=== PATIENT | female | born 2000 | race Caucasian/White ===

== ENCOUNTER 2019-10-01 00:38 | Emergency (ER) | payer SELFPAY ==
[~2019-10-01] VITALS: Ht 156.2 cm; Wt 61.4 kg
[2019-10-01 00:50] VITALS: Ht 156.2 cm; Wt 61.4 kg
[2019-10-01 01:14] LABS: BASOPHILS 0.2 % (0-2); EOSINOPHILS 1.4 % (0-7); HEMATOCRIT 40.3 % (36.0-48.0); HEMOGLOBIN 12.9 g/dL (12-16); IMMATURE GRANULOCYTES 0.2 % (0-5); LYMPHOCYTES 21.2 % (15-50); MCH 28.9 pg (26.0-34.0); MCV 90.4 fL (80.0-100.0); MONOCYTES 10.8 % (2-11); NEUTROPHILS 66.2 % (40-80); PLATELET COUNT 261 10x3/uL (130-400); RBC 4.46 10x6/uL (4.00-5.40); WBC 10.3 10x3/uL (4.8-10.8)
[2019-10-01 01:22] LABS: ANION GAP 10.3 mmol/L (8-16); CALCIUM 8.9 mg/dL (8.5-10.1); CARBON DIOXIDE 29.1 mmol/L (21.0-32.0); CREATININE - SERUM 1.1 mg/dL (0.6-1.3); POTASSIUM - SERUM 3.4 mmol/L (3.5-5.1)
[2019-10-01 01:27] LABS: UDS - AMPHET POSITIVE QUAL (NEGATIVE); UDS - BARB NEGATIVE QUAL (NEGATIVE); UDS - BENZO POSITIVE QUAL (NEGATIVE); UDS - COCAINE NEGATIVE QUAL (NEGATIVE); UDS - OPIATE NEGATIVE QUAL (NEGATIVE); UDS - PCP NEGATIVE QUAL (NEGATIVE); UDS - THC POSITIVE QUAL (NEGATIVE)
[2019-10-01 01:35] LABS: ALBUMIN 4.1 g/dL (3.4-5.0); BILIRUBIN - TOTAL 0.48 mg/dL (0.2-1.3); PROTEIN - SERUM 8.1 g/dL (6.4-8.2); THYROID STIMULATING HORMONE 1.89 uIU/mL (0.36-3.74)
[2019-10-01 01:39] LABS: BILIRUBIN NEGATIVE (NEGATIVE); GLUCOSE NEGATIVE (NEGATIVE); KETONE NEGATIVE (NEGATIVE); NITRITE NEGATIVE (NEGATIVE); SPECIFIC GRAVITY 1.015 (1.005-1.020); UROBILINOGEN NORMAL (NORMAL)
[2019-10-01 01:40] LABS: BACTERIA FEW /hpf (NEGATIVE); EPITHELIAL CELLS 0-5 /hpf (0-5); RED CELLS - URINE 0-5 /hpf (0-5); WHITE CELLS - URINE 0-5 /hpf (NEGATIVE)
[2019-10-01 01:53] LABS: HCG URINE NEGATIVE (NEGATIVE)
[2019-10-01 02:25] VITALS: BP 101/76
== END 2019-10-01 02:25 | disposition home or self-care (01) ==
LOC: D.ER 00:38
PROVIDERS: Family Medicine
DX: R55 Syncope and collapse (principal); F19.10 Other psychoactive substance abuse, uncomplicated; F15.90 Other stimulant use, unspecified, uncomplicated

== ENCOUNTER 2020-09-15 16:01 | Outpatient (CLI) | payer OTHER ==
[2020-04-12 14:17] VITALS: BMI 27.9
[2020-09-18 01:49] VITALS: BMI 38.7
== END 2020-09-15 17:10 | disposition home or self-care (01) ==
LOC: D.LDO 16:01
PROVIDERS: ATTEND Obstetrics & Gynecology
DX: O35.9XX0 Maternal care for (suspected) fetal abnormality and damage, unspecified, not applicable or unspecified (principal)

== ENCOUNTER 2020-09-18 01:02 | Inpatient (IN) | payer OTHER ==
[~2020-09-18] VITALS: Ht 156.2 cm; Wt 94.3 kg
[2020-09-18 01:49] VITALS: BP 123/80; Ht 156.2 cm; Wt 94.3 kg
[2020-09-18 03:02] LABS: UDS - AMPHET NEGATIVE QUAL (NEGATIVE); UDS - BARB NEGATIVE QUAL (NEGATIVE); UDS - BENZO NEGATIVE QUAL (NEGATIVE); UDS - COCAINE NEGATIVE QUAL (NEGATIVE); UDS - OPIATE NEGATIVE QUAL (NEGATIVE); UDS - PCP NEGATIVE QUAL (NEGATIVE); UDS - THC NEGATIVE QUAL (NEGATIVE)
[2020-09-18 03:03] LABS: HEMATOCRIT 34.3 % (36.0-48.0); HEMOGLOBIN 10.7 g/dL (12-16); MCH 26.7 pg (26.0-34.0); MCHC 31.2 g/dL (31.0-37.0); MCV 85.5 fL (80.0-100.0); MEAN PLATELET VOLUME 10.6 fL (7.4-10.4); RBC 4.01 10x6/uL (4.00-5.40); RDW 15.5 % (11.5-14.5); WBC 10.1 10x3/uL (4.8-10.8)
[2020-09-18 03:20] LABS: BILIRUBIN NEGATIVE (NEGATIVE); KETONE NEGATIVE (NEGATIVE); NITRITE NEGATIVE (NEGATIVE); UROBILINOGEN NORMAL mg/dL (< 2)
[2020-09-18 03:22] LABS: BACTERIA MODERATE HPF (NONE SEEN); SQUAMOUS EPITHELIAL 0-5 HPF (0-4)
[2020-09-18 17:59] LABS: BASOPHILS 0 % (0-2); EOSINOPHILS 0 % (0-7); IMMATURE GRANULOCYTES 0.2 % (0-5); LYMPHOCYTE ABS# 1.11 10x3/uL (1.18-3.74); LYMPHOCYTES 7.3 % (15-50); MCH 26.8 pg (26.0-34.0); MCHC 31.4 g/dL (31.0-37.0); MCV 85.2 fL (80.0-100.0); MEAN PLATELET VOLUME 10.2 fL (7.4-10.4); MONOCYTES 5.7 % (2-11); NEUTROPHIL ABS# 13.12 10x3/uL (1.56-6.13); NEUTROPHILS 86.8 % (40-80)
[2020-09-18 18:07] LABS: HEMATOCRIT 24.2 % (36.0-48.0); HEMOGLOBIN 7.6 g/dL (12-16); PLATELET COUNT 183 10x3/uL (130-400); RBC 2.84 10x6/uL (4.00-5.40); WBC 15.1 10x3/uL (4.8-10.8)
[2020-09-18 19:45] VITALS: BP 114/59
--- NOTE | 2020-09-18 19:45 | NUR ---
ASSESSMENT PER FLOW SHEET, VS OBTAINED, SALINE LOCK IN LEFT WRIST INTACT WITH NO REDNESS OR EDEMA, FF, ML, U/1, SMALL BLEEDING NOTED, EDEMA NOTED ON LABIA, PT REPORTS FLATUS, INFORMED PT THAT I WILL BE TRANSFERRING HER TO [facility], PT VERBALIZES UNDERSTANDING, FOB AT BEDSIDE
--- NOTE | 2020-09-18 20:10 | NUR ---
PT UP TO BR WITH ASSISTANCE, GAIT STEADY, PER THIS RN AND ANDRAE STONER, RN, PT VOIDED 300 MLS OF LIGHTLY BLOOD TINGED URINE BY SELF, REPORTS "SLIGHT BURNING", ASSISTED PT WITH ROMEO CARE, ICE PACK TO PERINIUM, PANTIES AND CLEAN GOWN PLACED ON, FOB SHOWN TO ROOM 1221 WITH ALL BELONGINGS, PT TRANSFERRED VIA WC TO ROOM 1221, PT TO BED, PT ORIENTED TO ROOM, BED IN LOW POSITION, SIDE RAILS X 2, CALL LIGHT IN REACH
--- NOTE | 2020-09-18 20:32 | NUR ---
ADM PRE-MEDS FOR BLOOD TRANSFUSION, SALINE LOCK IN LEFT WRIST, FLUSHED WITH 10MLS OF NS WITH NO DIFFICULTY, CONVERTED TO IV, NS HUNG TO INFUSE AT O AT THIS TIME
--- NOTE | 2020-09-18 21:04 | NUR ---
ADM 2100 MEDS PER MD ORDERS, SEE EMAR, PT EDUCATED ON SIGNS AND SYMPTOMS TO REPORT DURING BLOOD TRANSFUSION, PT VERBALIZES UNDERSTANDING
[2020-09-18 21:15] VITALS: BP 114/62
--- NOTE | 2020-09-18 21:15 | NUR ---
FIRST UNIT OF PR[facility] STARTED, VERIFIED PER THIS RN AND IDALMIS LI RN, ATTACHE, VS INITIATED
[2020-09-18 21:30] VITALS: BP 113/54
--- NOTE | 2020-09-18 21:30 | NUR ---
THIS RN CONTINUES AT BEDSIDE, PT DENIES S/S OF BLOOD TRANSFUSION
--- NOTE | 2020-09-18 22:00 | NUR ---
PT RESTING WITH EYES CLOSED, AROUSES TO SOFT VERBAL STIMULATION, PT SHANICE TRANSFUSION WITH NO S/S TO REPORT, VS CONTINUE
[2020-09-18 22:30] VITALS: BP 112/53
--- NOTE | 2020-09-18 22:30 | NUR ---
PT RESTING, VS CONTINUE, OBTAINED TEMP, PT DENIES ANY S/S WITH TRANSFUSION, DENIES NEEDS AT THIS TIME, INFANT IN OPEN CRIB CART AND FOB CONTINUE AT BEDSIDE, BEDDING PROVIDED TO FOB
--- NOTE | 2020-09-18 23:00 | NUR ---
PT RESTING WITH EYES CLOSED, RESP QUIET, NO DISTRESS NOTED, LEFT UNDISTURBED AT THIS TIME VS CONTINUE, FOB AT BEDSIDE, IN NSY AT THIS TIME
[2020-09-18 23:30] VITALS: BP 102/54
--- NOTE | 2020-09-18 23:55 | NUR ---
PT RESTING WITH EYES CLOSED, RESP QUIET, NO DISTRESS NOTED, LEFT UNDISTURBED AT THIS TIME, 1ST UNIT OF PRBC FINISHED INFUSING, NS STARTED TO FLUSH LINE, FOB ASLEEP AT BEDSIDE
[2020-09-19] VITALS (7 sets, daily range): BP systolic 104–120; BP diastolic 59–70
--- NOTE | 2020-09-19 00:30 | NUR ---
PT AWAKE, PT UP TO BR WITH ASSISTANCE, GAIT STEADY, VOIDED LARGE AMOUNT BY SELF, ASSISTED PT WITH ROMEO CARE, ICE PACK PLACED, PT BACK TO BED, IN OPEN CRIB CART AND FOB AT BEDSIDE
--- NOTE | 2020-09-19 00:40 | NUR ---
2ND UNIT OF PR[facility] HUNG, TUBING CHANGED, THIS RN CONTINUES AT BEDSIDE, VS CONTINUE, PT EDUCATED AGAIN ON S/S OF BLOOD TRANSFUSION, PT VERBALIZES UNDERSTANDING, PT C/O CRAMPING, INFORMED PT THAT I WILL ADM MARISELRIN
--- NOTE | 2020-09-19 01:00 | NUR ---
PT SHANICE BLOOD TRANSFUSION, DENIES ANY S/S, ADM MOTRIN PER MD ORDERS, SEE EMAR, INFANT IN OPEN CRIB CART AND FOB AT BEDSIDE
--- NOTE | 2020-09-19 02:00 | NUR ---
PT AWAKE, HOLDING INFANT, DENIES ANY S/S OF BLOOD TRANSFUSION, SHANICE WELL, VS CONTINUE, DENIES NEEDS OR PAIN AT THIS TIME, FOB ASLEEP AT BEDSIDE
--- NOTE | 2020-09-19 02:15 | NUR ---
PT RESTING, VS CONTINUE, NO S/S OF REACTION TO BLOOD TRANSFUSION
--- NOTE | 2020-09-19 02:40 | NUR ---
PT RESTING WITH EYES CLOSED, AROUSES TO SOFT VERBAL STIMULATION, VS CONTINUE, OBTAINED TEMP, PT DENIES ANY S/S OF REACTION, PT DENIES NEEDS OR PAIN
--- NOTE | 2020-09-19 03:40 | NUR ---
2ND UNIT OF PR[facility] FINISHED INFUSING, NS STARTED TO FLUSH LINE, PT DENIES NEEDS OR PAIN AT THIS TIME, IN OPEN CRIB CART AND FOB ASLEEP AT BEDSIDE
--- NOTE | 2020-09-19 04:40 | NUR ---
PT RESTING WITH EYES CLOSED, AROUSES TO SOFT VERBAL STIMULATION, LAST SET OF VS OBTAINED, IV CONVERTED TO SALINE LOCK, FLUSHED WITH 10ML OF NS WITH NO DIFFICULTY, PT DENIES NEEDS OR PAIN AT THIS TIME, IN OPEN CRIB CART AND FOB AT BEDSIDE
--- NOTE | 2020-09-19 05:50 | NUR ---
PT TEST AND TURN UP TECHNICIAN LIGHT, PT UP TO BR WITH ASSISTANCE, GAIT STEADY, PT VOIDED BY SELF WITH NO DIFFICULTY, REPORTS "IT GRIFFIN, BUT NOTHING LIKE IT DID YESTERDAY", ASSISTED PT WITH ROMEO CARE, PANTIES, AND FRESH ICE PACK, PT BACK TO BED, DENIES FURTHER NEEDS AT THIS TIME
[2020-09-19 06:35] LABS: BASOPHILS 0.1 % (0-2); EOSINOPHILS 0.4 % (0-7); IMMATURE GRANULOCYTES 0.3 % (0-5); LYMPHOCYTE ABS# 2.42 10x3/uL (1.18-3.74); LYMPHOCYTES 17.4 % (15-50); MCH 27.3 pg (26.0-34.0); MCHC 31.9 g/dL (31.0-37.0); MCV 85.5 fL (80.0-100.0); MEAN PLATELET VOLUME 10.8 fL (7.4-10.4); MONOCYTES 6.7 % (2-11); NEUTROPHIL ABS# 10.42 10x3/uL (1.56-6.13); NEUTROPHILS 75.1 % (40-80); PLATELET COUNT 164 10x3/uL (130-400); RDW 15.6 % (11.5-14.5); WBC 13.9 10x3/uL (4.8-10.8)
[2020-09-19 06:39] LABS: HEMATOCRIT 30.1 % (36.0-48.0); HEMOGLOBIN 9.6 g/dL (12-16); RBC 3.52 10x6/uL (4.00-5.40)
[2020-09-19] MEDS ORDERED: FERROUS SULFAT325 MG PO (06:42)
--- NOTE | 2020-09-19 07:25 | NUR ---
TO ROOM FOR VS AND ASSESSMENT. SEE FLOWSHEET. PT RESTING IN BED. SIGNIFICANT OTHER PRESENT. BABY AT BEDSIDE IN CRIB. NO NEEDS OR CONCERNS VOICED BY PT AT THIS TIME.
[2020-09-19 08:13] LABS: RAPID PLASMA REAGIN Non Reactive (Non Reactive)
--- NOTE | 2020-09-19 15:32 | NUR ---
PT DESIRES DISCHARGE TODAY. DR. MCRAE NOTIFIED. ORDERS RECEIVED.
--- NOTE | 2020-09-19 17:37 | NUR ---
IV D/C'D. CATHETER INTACT. REVIEWED DISHCARGE INSTRUCTIONS. STATES UNDERSTANDING. FOLLOW UP APPOINTMENT GIVEN FOR 10/30/20 @ 9:[address] MCRAE. PT DISCHARGED HOME VIA WHEELCHAIR TO PRIVATE VEHICLE.
== END 2020-09-19 17:39 | disposition home or self-care (01) | DRG 768 ==
LOC: D.WS 01:02 → D.LD 01:02 → D.WS 20:05
PROVIDERS: Student in an Organized Health Care Education/Training Program; ADMIT Obstetrics & Gynecology; ATTEND Obstetrics & Gynecology
PROC: 10E0XZZ Delivery of Products of Conception, External Approach (ICD-10-PCS; principal; 2020-09-18)
PROC: 0DQR0ZZ Repair Anal Sphincter, Open Approach (ICD-10-PCS; 2020-09-18)
DX: O72.1 Other immediate postpartum hemorrhage (principal); Z37.0 Single live birth; O70.20 Third degree perineal laceration during delivery, unspecified; Z3A.39 39 weeks gestation of pregnancy